=== PATIENT | female | born 1960 | race African-American/Black ===

== ENCOUNTER 2016-10-29 15:24 | Emergency (ER) | payer SELFPAY ==
[~2016-10-29] VITALS: Ht 162.6 cm; Wt 73.0 kg
[2016-10-29 15:42] VITALS: BP 129/87
== END 2016-10-29 19:04 | disposition home or self-care (01) ==
LOC: ER 18:19
DX: L25.9 Unspecified contact dermatitis, unspecified cause (principal); Z98.890 Other specified postprocedural states
CPT/HCPCS: 99283

== ENCOUNTER 2019-02-25 06:54 | Emergency (ER) | payer MEDICAID ==
[~2019-02-25] VITALS: Ht 162.6 cm; Wt 79.0 kg
[2019-02-25] MEDS ORDERED: DICYCLOMINE HCL 10MG CAPSULE PO ONE (10:00)
[2019-02-25 12:00] VITALS: BP 133/91
[2019-02-25 12:27] LABS: CLARITY URINE CLEAR (CLEAR); COLOR URINE YELLOW (YELLOW); KETONES URINE NEGATIVE (NEGATIVE); LEUKOCYTE ESTERASE URINE NEGATIVE (NEGATIVE); NITRITE URINE NEGATIVE (NEGATIVE); OCCULT BLOOD URINE 1+ (NEGATIVE); PH URINE 6.5 (4.5-8.0); PROTEIN URINE NEGATIVE (NEGATIVE); SPECIFIC GRAVITY URINE 1.008 (1.005-1.030); UROBILINOGEN URINE 0.2 E.U./dL (0.2-1.0)
== END 2019-02-25 13:07 | disposition home or self-care (01) ==
LOC: ER 06:54
DX: R10.30 Lower abdominal pain, unspecified (principal); R19.7 Diarrhea, unspecified
CPT/HCPCS: 99283

== ENCOUNTER 2019-02-27 03:19 | Emergency (ER) | payer MEDICAID ==
[~2019-02-27] VITALS: Ht 175.3 cm; Wt 78.7 kg
[2019-02-27] MEDS ORDERED: ONDANSETRON HCL 4MG/2ML INJ IV STA (05:00)
[2019-02-27] MEDS ORDERED: SODIUM CHLORIDE 0.9% 1,000 ML IV ONE (05:00)
[2019-02-27 05:29] LABS: BASOPHILS % 0.5 % (0.0-2.0); EOSINOPHILS % 1.5 % (0.0-5.0); HEMATOCRIT. 37.9 % (36.0-48.0); HEMOGLOBIN. 12.6 g/dL (12.0-16.0); LYMPHOCYTES % 18.2 % (20.0-50.0); MEAN CORPUSCULAR VOLUME 84.4 fL (81.0-99.0); MONOCYTES % 4.9 % (2.0-8.0); NEUTROPHILS % 74.9 % (40.0-76.0); PLATELET 270 x1000/uL (130-400); RED BLOOD CELL COUNT 4.49 mill/uL (4.2-5.4); RED CELL DISTRIBUTION WIDTH 14.3 % (11.6-14.6)
[2019-02-27 05:32] LABS: CHLORIDE 107 mEq/L (98-107)
[2019-02-27 08:15] LABS: CLARITY URINE CLEAR (CLEAR); COLOR URINE YELLOW (YELLOW); KETONES URINE NEGATIVE (NEGATIVE); LEUKOCYTE ESTERASE URINE NEGATIVE (NEGATIVE); NITRITE URINE NEGATIVE (NEGATIVE); OCCULT BLOOD URINE 2+ (NEGATIVE); PROTEIN URINE NEGATIVE (NEGATIVE); SPECIFIC GRAVITY URINE 1.012 (1.005-1.030); UROBILINOGEN URINE 0.2 E.U./dL (0.2-1.0)
[2019-02-27 08:25] VITALS: BP 142/79
== END 2019-02-27 08:29 | disposition home or self-care (01) ==
LOC: ER 03:19
DX: R19.7 Diarrhea, unspecified (principal)
CPT/HCPCS: 36415; 74176; 80053; 81003; 83605; 83690; 85025; 96361; 96374; 99284; J2405; J7030

== ENCOUNTER 2020-02-08 14:36 | Emergency (ER) | payer MEDICAID ==
[~2020-02-08] VITALS: Ht 162.6 cm; Wt 78.0 kg
[2020-02-08] MEDS ORDERED: SODIUM CHLORIDE 0.9% 1,000 ML IV ONE (16:36)
[2020-02-08] MEDS ORDERED: METOCLOPRAMIDE HCL 10MG/2ML VIAL IV ONE (16:45)
[2020-02-08] MEDS ORDERED: KETOROLAC 30MG/ML VIAL IV ONE (16:45)
[2020-02-08 19:40] LABS: CLARITY URINE CLEAR (CLEAR); COLOR URINE YELLOW (YELLOW); KETONES URINE NEGATIVE (NEGATIVE); LEUKOCYTE ESTERASE URINE NEGATIVE (NEGATIVE); NITRITE URINE NEGATIVE (NEGATIVE); OCCULT BLOOD URINE 1+ (NEGATIVE); PROTEIN URINE NEGATIVE (NEGATIVE); SPECIFIC GRAVITY URINE 1.007 (1.005-1.030); UROBILINOGEN URINE 0.2 E.U./dL (0.2-1.0)
[2020-02-08 20:37] VITALS: BP 135/87
== END 2020-02-08 20:38 | disposition home or self-care (01) ==
LOC: ER 14:36
DX: G43.909 Migraine, unspecified, not intractable, without status migrainosus (principal)
CPT/HCPCS: 81003; 96374; 96375; 99284; J1885; J2765; J7030

== ENCOUNTER 2021-03-14 22:01 | Emergency (ER) | payer MEDICAID ==
[~2021-03-14] VITALS: Ht 165.1 cm; Wt 75.0 kg
[2021-03-15 00:30] LABS: BASOPHILS % 0.5 % (0.0-2.0); EOSINOPHILS % 3.2 % (0.0-5.0); HEMATOCRIT. 36.5 % (36.0-48.0); HEMOGLOBIN. 12.2 g/dL (12.0-16.0); LYMPHOCYTES % 47.1 % (20.0-50.0); MEAN CORPUSCULAR HEMOGLOBIN 27.9 pg (28.0-32.0); MEAN CORPUSCULAR VOLUME 83.7 fL (81.0-99.0); MEAN PLATELET VOLUME 7.8 fl (7.4-10.4); NEUTROPHILS % 43.2 % (40.0-76.0); PLATELET 293 x1000/uL (130-400); RED BLOOD CELL COUNT 4.37 mill/uL (4.2-5.4); RED CELL DISTRIBUTION WIDTH 14.8 % (11.6-14.6)
[2021-03-15 00:50] LABS: CHLORIDE 108 mEq/L (98-107)
[2021-03-15 01:30] VITALS: BP 131/74
== END 2021-03-15 02:57 | disposition home or self-care (01) ==
LOC: ER 22:01
DX: R00.2 Palpitations (principal); F17.290 Nicotine dependence, other tobacco product, uncomplicated; F12.10 Cannabis abuse, uncomplicated
CPT/HCPCS: 36415; 80048; 85025; 93005; 99284

== ENCOUNTER 2021-03-19 20:21 | Emergency (ER) | payer MEDICAID ==
[~2021-03-19] VITALS: Ht 162.6 cm; Wt 87.1 kg
[2021-03-19] MEDS ORDERED: ASPIRIN/ACETAMINOPHEN/CAFFEINE 250/250/65MG TABLET PO STA (21:13)
[2021-03-19 21:53] LABS: BASOPHILS % 0.3 % (0.0-2.0); HEMATOCRIT. 35.9 % (36.0-48.0); HEMOGLOBIN. 11.8 g/dL (12.0-16.0); LYMPHOCYTES % 44.5 % (20.0-50.0); MEAN CORPUSCULAR HEMOGLOBIN 27.7 pg (28.0-32.0); MEAN CORPUSCULAR VOLUME 84.4 fL (81.0-99.0); MEAN PLATELET VOLUME 7.9 fl (7.4-10.4); NEUTROPHILS % 45.2 % (40.0-76.0); PLATELET 283 x1000/uL (130-400); RED BLOOD CELL COUNT 4.25 mill/uL (4.2-5.4); RED CELL DISTRIBUTION WIDTH 14.9 % (11.6-14.6)
[2021-03-19 22:00] LABS: CHLORIDE 109 mEq/L (98-107)
[2021-03-19 22:43] VITALS: BP 122/78
== END 2021-03-19 22:45 | disposition home or self-care (01) ==
LOC: ER 20:34
DX: R07.9 Chest pain, unspecified (principal); F17.210 Nicotine dependence, cigarettes, uncomplicated; Z71.6 Tobacco abuse counseling
CPT/HCPCS: 36415; 71045; 80053; 84484; 85025; 99284; 99406

== ENCOUNTER 2022-02-01 08:41 | Emergency (ER) | payer MEDICAID ==
[~2022-02-01] VITALS: Ht 162.6 cm; Wt 77.0 kg
[2022-02-01 08:54] VITALS: BP 125/80
[2022-02-01] MEDS ORDERED: KETOROLAC 60MG/2ML VIAL IM ONE (09:15)
== END 2022-02-01 10:32 | disposition home or self-care (01) ==
LOC: ER 08:53
DX: U07.1 COVID-19 (principal); R51.9 Headache, unspecified; I49.8 Other specified cardiac arrhythmias
CPT/HCPCS: 87426; 93005; 96372; 99283; C9803; J1885

== ENCOUNTER 2022-04-22 19:45 | Emergency (ER) | payer MEDICAID ==
[~2022-04-22] VITALS: Ht 162.6 cm; Wt 81.3 kg
[2022-04-22 20:04] VITALS: BP 128/84
== END 2022-04-23 01:15 | disposition left against medical advice (07) ==
LOC: ER 19:45
DX: Z53.21 Procedure and treatment not carried out due to patient leaving prior to being seen by health care provider (principal)

== ENCOUNTER 2022-04-23 10:55 | Emergency (ER) | payer MEDICAID ==
[~2022-04-23] VITALS: Ht 162.6 cm; Wt 77.0 kg
[2022-04-23 16:28] LABS: BASOPHILS % 0.4 % (0.0-2.0); HEMATOCRIT. 36.4 % (36.0-48.0); HEMOGLOBIN. 12.2 g/dL (12.0-16.0); LYMPHOCYTES % 44.1 % (20.0-50.0); MEAN CORPUSCULAR HEMOGLOBIN 27.9 pg (28.0-32.0); MEAN CORPUSCULAR VOLUME 83.5 fL (81.0-99.0); MEAN PLATELET VOLUME 8.3 fl (7.4-10.4); MONOCYTES % 5.8 % (2.0-8.0); NEUTROPHILS % 46.7 % (40.0-76.0); PLATELET 282 x1000/uL (130-400); RED BLOOD CELL COUNT 4.36 mill/uL (4.2-5.4); RED CELL DISTRIBUTION WIDTH 14.8 % (11.6-14.6)
[2022-04-23 16:39] LABS: CHLORIDE 105 mEq/L (98-107)
[2022-04-23 16:45] LABS: CLARITY URINE CLEAR (CLEAR); COLOR URINE YELLOW (YELLOW); KETONES URINE NEGATIVE (NEGATIVE); LEUKOCYTE ESTERASE URINE NEGATIVE (NEGATIVE); NITRITE URINE NEGATIVE (NEGATIVE); OCCULT BLOOD URINE 1+ (NEGATIVE); PROTEIN URINE NEGATIVE (NEGATIVE); UROBILINOGEN URINE 0.2 E.U./dL (0.2-1.0)
[2022-04-23 16:49] LABS: ETHANOL BLOOD < 10 mg/dL
[2022-04-23 16:55] LABS: *AMPHETAMINES SCREEN URINE NEGATIVE (NEGATIVE); *BARBITURATES SCREEN URINE NEGATIVE (NEGATIVE); *BENZODIAZEPINES SCREEN URINE NEGATIVE (NEGATIVE); *COCAINE SCREEN URINE NEGATIVE (NEGATIVE); CANNABINOID URINE SCREEN PRESUMTIVE POSITIVE (NEGATIVE); METHADONE URINE SCREEN NEGATIVE (NEGATIVE); OPIATES URINE SCREEN NEGATIVE (NEGATIVE); PHENCYCLIDINE URINE SCREEN NEGATIVE (NEGATIVE)
[2022-04-23 17:00] VITALS: BP 150/86
== END 2022-04-23 17:30 | disposition home or self-care (01) ==
LOC: ER 11:17
DX: R42 Dizziness and giddiness (principal); R53.1 Weakness; F12.10 Cannabis abuse, uncomplicated
CPT/HCPCS: 36415; 80053; 80305; 80320; 81003; 82962; 85025; 93005; 99284; G0480

== ENCOUNTER 2024-02-29 12:27 | Inpatient (IN) | payer SELFPAY ==
[~2024-02-29] VITALS: Ht 162.6 cm; Wt 83.9 kg
[2024-02-29 12:36] VITALS: O2SAT 99
[2024-02-29 13:06] LABS: BASOPHILS % 0.4 % (0.0-2.0); EOSINOPHILS % 1.7 % (0.0-5.0); HEMATOCRIT. 37.1 % (36.0-48.0); LYMPHOCYTES % 39.3 % (20.0-50.0); MEAN CORPUSCULAR HEMOGLOBIN 27.8 pg (28.0-32.0); MEAN CORPUSCULAR HGB CONC 32.4 g/dL (31.0-37.0); MEAN CORPUSCULAR VOLUME 85.7 fL (81.0-99.0); MEAN PLATELET VOLUME 7.9 fl (7.4-10.4); MONOCYTES % 6.2 % (2.0-8.0); NEUTROPHILS % 52.4 % (40.0-76.0); PLATELET 303 x1000/uL (130-400); RED BLOOD CELL COUNT 4.33 mill/uL (4.2-5.4); RED CELL DISTRIBUTION WIDTH 14.5 % (11.6-14.6); WHITE BLOOD COUNT 4.6 x1000/uL (4.5-11.0)
[2024-02-29 13:13] LABS: CHLORIDE 104 mEq/L (98-107); POTASSIUM 3.4 mEq/L (3.5-5.1); SODIUM 140 mEq/L (136-145)
[2024-02-29 13:14] LABS: CALCIUM 10.1 mg/dL (8.7-10.4); CARBON DIOXIDE 30 mEq/L (21-32)
[2024-02-29 13:19] LABS: GLUCOSE 160 mg/dL (70-105); UREA NITROGEN BLOOD 9 mg/dL (9-23)
[2024-02-29 13:20] LABS: TROPONIN I HIGH SENSITIVITY 22 ng/L (3.0-34)
[2024-02-29] MEDS: POTASSIUM CHLORIDE 10MEQ TABLET SR PO ONE (16:08)
[2024-02-29 16:24] LABS: TROPONIN I HIGH SENSITIVITY 21 ng/L (3.0-34)
[2024-03-01] VITALS: BP 148/88; PULSE 65; RESP 16; TEMP 97.9
[2024-03-01] MEDS ORDERED: MELATONIN 3MG TABLET PO SCH
[2024-03-01] MEDS ORDERED: MELATONIN 3MG TABLET PO PRN (01:45)
[2024-03-01 04:00] VITALS: BP 128/74; PULSE 62; RESP 16; TEMP 97.6
[2024-03-01 07:20] LABS: BASOPHILS % 0.4 % (0.0-2.0); EOSINOPHILS % 2.6 % (0.0-5.0); MEAN CORPUSCULAR HEMOGLOBIN 28.2 pg (28.0-32.0); MEAN CORPUSCULAR HGB CONC 33.3 g/dL (31.0-37.0); MEAN CORPUSCULAR VOLUME 84.8 fL (81.0-99.0); MEAN PLATELET VOLUME 8.2 fl (7.4-10.4); MONOCYTES % 8.1 % (2.0-8.0); NEUTROPHILS % 48.9 % (40.0-76.0); PLATELET 305 x1000/uL (130-400); RED BLOOD CELL COUNT 4.24 mill/uL (4.2-5.4); RED CELL DISTRIBUTION WIDTH 14.4 % (11.6-14.6); WHITE BLOOD COUNT 4.2 x1000/uL (4.5-11.0)
[2024-03-01 07:40] LABS: THYROID STIMULATING HORMONE 0.82 uIU/mL (0.55-4.78)
[2024-03-01 08:00] VITALS: BP 134/77; PULSE 61; RESP 18; TEMP 97.3
[2024-03-01] MEDS: METOPROLOL TARTRATE 50MG TABLET PO SCH (08:44)
[2024-03-01 12:00] VITALS: BP 140/86; PULSE 64; RESP 18; TEMP 97.4
[2024-03-01] MEDS ORDERED: DOCUSATE SODIUM 100MG CAPSULE PO PRN (14:30)
[2024-03-01] MEDS ORDERED: DEXTROSE 50% WATER 50ML SYRINGE IV PRN (14:30)
[2024-03-01] MEDS ORDERED: ACETAMINOPHEN 325MG TABLET PO PRN ×3 (14:30)
[2024-03-01] MEDS: PANTOPRAZOLE SODIUM 40 MG/VIAL IV SCH (14:30)
[2024-03-01] MEDS ORDERED: IPRATROPIUM/ALBUTEROL 0.5-3(2.5)MG/3ML NEB HHN PRN (14:30)
[2024-03-01] MEDS ORDERED: CLONIDINE 0.1MG TABLET PO PRN (14:30)
[2024-03-01] MEDS ORDERED: ONDANSETRON HCL 4MG/2ML INJ IV PRN (14:30)
[2024-03-01] MEDS: ASPIRIN 81MG TABLET PO SCH (15:27)
[2024-03-01] MEDS: ENOXAPARIN 40MG/0.4ML SYR SUBCUT SCH (15:28)
[2024-03-01 16:00] VITALS: BP 124/79; PULSE 69; RESP 20; TEMP 98.6
[2024-03-01] MEDS: INSULIN LISPRO 100 UNITS/ML SUBCUT SCH (17:40)
[2024-03-01] MEDS: BLOOD SUGAR DIAGNOSTIC STRIP TEST SCH (18:01)
[2024-03-01 18:14] LABS: CLARITY URINE CLEAR (CLEAR); COLOR URINE YELLOW (YELLOW); GLUCOSE URINE NEGATIVE (NEGATIVE); KETONES URINE NEGATIVE (NEGATIVE); LEUKOCYTE ESTERASE URINE NEGATIVE (NEGATIVE); NITRITE URINE NEGATIVE (NEGATIVE); OCCULT BLOOD URINE 1+ (NEGATIVE); PROTEIN URINE NEGATIVE (NEGATIVE); SPECIFIC GRAVITY URINE 1.017 (1.005-1.030); UROBILINOGEN URINE 0.2 E.U./dL (0.2-1.0)
[2024-03-01 18:20] LABS: CARBON DIOXIDE 29 mEq/L (21-32); CHLORIDE 105 mEq/L (98-107); POTASSIUM 3.9 mEq/L (3.5-5.1); SODIUM 140 mEq/L (136-145)
[2024-03-01 18:21] LABS: CALCIUM 9.6 mg/dL (8.7-10.4)
[2024-03-01 18:25] LABS: UREA NITROGEN BLOOD 12 mg/dL (9-23)
[2024-03-01 18:26] LABS: GLUCOSE 102 mg/dL (70-105)
[2024-03-01 18:27] LABS: ALANINE AMINOTRANSFERASE 11 IU/L (10-49); ALBUMIN 4.3 g/dL (3.2-4.8); ASPARTATE AMINOTRANSFERASE 21 IU/L (<34)
[2024-03-01 18:28] LABS: BILIRUBIN DIRECT 0.2 mg/dL (<=3.0); BILIRUBIN TOTAL 0.7 mg/dL (0.1-1.0); PHOSPHORUS 3.6 mg/dL (2.5-4.9); PROTEIN TOTAL 7.1 g/dL (6.0-8.3)
[2024-03-01 18:29] LABS: *AMPHETAMINES SCREEN URINE NEGATIVE (NEGATIVE)
[2024-03-01 18:30] LABS: *BARBITURATES SCREEN URINE NEGATIVE (NEGATIVE); *BENZODIAZEPINES SCREEN URINE NEGATIVE (NEGATIVE); *COCAINE SCREEN URINE NEGATIVE (NEGATIVE); CANNABINOID URINE SCREEN PRESUMPTIVE POSITIVE (NEGATIVE); METHADONE URINE SCREEN NEGATIVE (NEGATIVE); OPIATES URINE SCREEN NEGATIVE (NEGATIVE); PHENCYCLIDINE URINE SCREEN NEGATIVE (NEGATIVE)
[2024-03-01 18:30] LABS: PROTHROMBIN TIME 11.4 sec (9.6-11.0)
[2024-03-01 18:31] LABS: T4 FREE 1.43 ng/dL (0.89-1.76)
[2024-03-01 18:54] LABS: BACTERIA URINE 1+; SQUAMOUS EPITHELIAL CELL URINE 1+ /lpf (RARE/1+); WBC URINE 0-2 /hpf (0-2); YEAST URINE NONE SEEN
[2024-03-01 20:00] VITALS: BP 120/75; PULSE 69; RESP 20; TEMP 97.2
[2024-03-01] MEDS: ATORVASTATIN CALCIUM 40MG TABLET PO SCH (20:53)
[2024-03-01] MEDS: HYDRALAZINE HCL 25MG TABLET PO SCH (21:06)
[2024-03-02] VITALS: BP 123/51; PULSE 111; RESP 20; TEMP 97.4
[2024-03-02 01:09] LABS: CREATINE KINASE MB FRACTION 1.1 ng/mL (0.5-3.6)
[2024-03-02 04:00] VITALS: BP 123/73; PULSE 51; RESP 18; TEMP 97.4
[2024-03-02 08:00] VITALS: BP 109/73; PULSE 69; RESP 16; TEMP 97.9
[2024-03-02 11:02] LABS: BASOPHILS % 0.5 % (0.0-2.0); EOSINOPHILS % 2.2 % (0.0-5.0); HEMATOCRIT. 38.2 % (36.0-48.0); HEMOGLOBIN. 12.6 g/dL (12.0-16.0); LYMPHOCYTES % 39.4 % (20.0-50.0); MEAN CORPUSCULAR HEMOGLOBIN 28.1 pg (28.0-32.0); MEAN CORPUSCULAR HGB CONC 33.1 g/dL (31.0-37.0); MEAN CORPUSCULAR VOLUME 84.8 fL (81.0-99.0); MEAN PLATELET VOLUME 8.4 fl (7.4-10.4); MONOCYTES % 7.8 % (2.0-8.0); NEUTROPHILS % 50.1 % (40.0-76.0); PLATELET 329 x1000/uL (130-400); RED CELL DISTRIBUTION WIDTH 14.4 % (11.6-14.6); WHITE BLOOD COUNT 4.5 x1000/uL (4.5-11.0)
[2024-03-02 11:17] LABS: CHLORIDE 104 mEq/L (98-107); POTASSIUM 3.7 mEq/L (3.5-5.1); SODIUM 137 mEq/L (136-145)
[2024-03-02 11:18] LABS: CARBON DIOXIDE 28 mEq/L (21-32)
[2024-03-02 11:23] LABS: CREATINE KINASE MB FRACTION 0.9 ng/mL (0.5-3.6); GLUCOSE 110 mg/dL (70-105); TROPONIN I HIGH SENSITIVITY 13 ng/L (3.0-34); UREA NITROGEN BLOOD 12 mg/dL (9-23)
[2024-03-02 11:25] LABS: CREATINE KINASE 138 IU/L (34-145)
[2024-03-03] MEDS ORDERED: FAMOTIDINE 20MG/2ML VIAL IV SCH (09:00)
== END 2024-03-02 10:40 | disposition left against medical advice (07) | DRG 207 ==
LOC: ER 12:27 → 8WST 18:22
PROVIDERS: ADMIT Internal Medicine; ATTEND Internal Medicine
DX: R00.2 Palpitations (principal); E78.5 Hyperlipidemia, unspecified; I10 Essential (primary) hypertension; Z53.29 Procedure and treatment not carried out because of patient's decision for other reasons; Z86.16 Personal history of COVID-19; Z20.822 Contact with and (suspected) exposure to COVID-19; Z79.899 Other long term (current) drug therapy
CPT/HCPCS: 36415; 71045; 80048; 80061; 80076; 80305; 81003; 82550; 82553; 82962; 83036; 83735; 83880; 84100; 84439; 84443; 84480; 84484; 85025; 87426; 93005; 99285; J1650; J2470